=== PATIENT | male | born 1965 | race Caucasian/White ===

== ENCOUNTER 2016-12-18 14:27 | Outpatient (CLI) | END 2016-12-18 14:28 | disposition home or self-care (01) | LOC: CAR 14:27 | PROVIDERS: ATTEND Nurse Practitioner | DX: R40.0 Somnolence (principal) | CPT/HCPCS: 95810 ==

== ENCOUNTER 2016-12-19 05:01 | Outpatient (CLI) ==
[2016-12-19 05:25] LABS: BASOPHILS # (AUTO) 0.1 K/uL (0-0.2); BASOPHILS % (AUTO) 0.7 % (0.0-3.0); EOSINOPHILS # (AUTO) 0.3 K/ul (0.0-0.7); EOSINOPHILS % (AUTO) 2.7 % (0.0-7.0); HEMATOCRIT 47.3 % (42.0-52.0); HEMOGLOBIN 16.3 g/dl (14.0-18.0); IMMATURE GRANULOCYTE % (AUTO) 0.8 % (0.0-5.0); LYMPHOCYTES # (AUTO) 2.7 K/uL (0.60-3.4); LYMPHOCYTES % (AUTO) 29.8 (10.0-50.0); MEAN CORPUSCULAR HEMOGLOBIN 27.6 pg (27.0-31.0); MEAN CORPUSCULAR HGB CONC 34.5 (31.8-35.4); MONOCYTES # (AUTO) 0.7 K/uL (0.4-2.0); MONOCYTES % (AUTO) 7.3 (0-10); NEUTROPHILS # (AUTO) 5.4 K/ul (2.0-6.9); NEUTROPHILS % (AUTO) 58.7; PLATELET COUNT 363 10^3/uL (140-440); RED BLOOD COUNT 5.91 10^6/ul (4.70-6.10)
[2016-12-19 05:32] LABS: BILIRUBIN,URINE Negative (NEGATIVE); KETONES,URINE Negative (NEGATIVE); LEUKOCYTE ESTERASE ,URINE Negative (NEGATIVE); NITRITE,URINE Negative (NEGATIVE); PH,URINE 5.5 (5-9); PROTEIN,URINE 2+ (NEGATIVE); URINE, BLOOD Trace-lysed (NEGATIVE)
[2016-12-19 05:37] LABS: ADD URINE MICROSCOPIC YES
[2016-12-19 06:24] LABS: ALBUMIN 4.2 g/dL (3.4-5.0); ALBUMIN/GLOBULIN RATIO 1.08; ANION GAP 22.3; BILIRUBIN,DIRECT 0.21 mg/dL (0.00-0.30); BILIRUBIN,TOTAL 0.67 mg/dL (0.00-1.20); BUN/CREATININE RATIO 11.42; CHOL/HDL RATIO 10.8 (4.5-6.4); CREATININE 1.05 mg/dL (0.60-1.10); PHOSPHORUS 4.4 mg/dL (2.5-4.9); POTASSIUM 3.3 mmol/L (3.5-5.1); TOTAL PROTEIN 8.1 g/dL (6.4-8.2)
[2016-12-20 06:11] LABS: TESTOSTERONE 219 ng/dL (264-916)
[2016-12-21 02:09] LABS: FREE TESTOSTERONE 9.2 pg/mL (6.8-21.5)
== END 2016-12-19 05:02 | disposition home or self-care (01) ==
LOC: LAB 05:01
PROVIDERS: ATTEND Nurse Practitioner
DX: E78.2 Mixed hyperlipidemia (principal); I10 Essential (primary) hypertension; M62.89 Other specified disorders of muscle; R40.0 Somnolence; Z00.00 Encounter for general adult medical examination without abnormal findings; Z72.820 Sleep deprivation
CPT/HCPCS: 36415; 80053; 80061; 81001; 82248; 84100; 84402; 84403; 84443; 85025

== ENCOUNTER 2017-01-07 12:50 | Outpatient (CLI) | END 2017-01-07 12:51 | disposition home or self-care (01) | LOC: CAR 12:50 | PROVIDERS: ATTEND Internal Medicine Pulmonary Disease | DX: G47.33 Obstructive sleep apnea (adult) (pediatric) (principal) | CPT/HCPCS: 95811 ==

== ENCOUNTER 2017-03-31 11:21 | Emergency (ER) ==
[2017-03-31 11:26] VITALS: TEMP 93; BMI 39.7
--- NOTE | 2017-03-31 11:58 | DI ---
EXAM: Two views of the right hip HISTORY: Right hip pain with no trauma. COMPARISON: None FINDINGS: There is no cortical irregularity or displaced fracture of the right hip. There is no lyti c or blastic lesion. The joint space is maintained. The soft tissues are normal. The adjacent osse ous structures are unremarkable. IMPRESSION: No acute abnormality or displaced fracture of the right hip.
--- NOTE | 2017-03-31 12:08 | ED.PDOC ---
General ED Provider: Dr. SANDOR GRIMM Chief Complaint: Hip Pain/Injury Stated Complaint: Right hip pain, radiates to the back and to the knee. no injury Time Seen by Physician: 11:45 Mode of Arrival: Walk-In Information Source: Patient Primary Care Provider: TRANG PERAZA Nursing and Triage Documentation Reviewed and Agree: Yes Musculoskeletal Complaint Exam - Back Pain Complaint/Exam Mechanism of Injury: Reports: No known trauma Onset/Duration: 3 days Symptoms Are: Still present Timing: Constant Initial Severity: Moderate Current Severity: Severe Location: Reports: Discrete (Lower back radiating to the right hip and thigh) Character: Reports: Aching, Throbbing, Spasmodic Aggravating: Reports: Movements, Bending, Walking Alleviating: Reports: None Associated Signs and Symptoms: Reports: Numbness. Denies: Swelling, Redness, Bruising, Fever, Weakness, Tingling, Abdominal pain, Flank pain, Bladder incontinence, Bowel incontinence, Weight loss, Pain with weight bearing Related History: Reports: Similar episode (on the left side) TAD Risk Factors: Reports: None AAA Risk Factors: Reports: None Cauda Equina Risk Factors: Reports: None Epidural Abcess Risk Factors: Reports: None Related Surgical History: Reports: None Focal Tenderness: Yes (right lower back ) Paraspinal Muscle Tenderness: Yes (right ) Paraspinal Muscle Spasm: Yes (right side ) Scoliosis: No Lordosis: No Kyphosis: No SLR Test: Right Positive, Left Negative Hip Motion Testing Pain: Right Negative, Left Negative Focal Weakness: Present: None Focal Sensory Loss: Present: None Gait: Present: Normal Back Picture: 1 - back pain and spams Differential Diagnoses: Strain, Sprain Review of Systems - Review Of Systems Constitutional: Reports: No symptoms Eyes: Reports: No symptoms Ears, Nose, Mouth, Throat: Reports: No symptoms Respiratory: Reports: No symptoms Cardiac: Reports: No symptoms GI: Reports: No symptoms : Reports: No symptoms Musculoskeletal: Reports: Back pain, Joint pain, Muscle pain Skin: Reports: No symptoms Neurological: Reports: No symptoms Endocrine: Reports: No symptoms Hematologic/Lymphatic: Reports: No symptoms All Other Systems: Reviewed and Negative Past Medical History - Past Medical History Endocrine: Reports: DM 2, Dyslipidemia Cardiovascular: Reports: Hypertension Respiratory: Reports: None Hematological: Reports: None Gastrointestinal: Reports: None Genitourinary: Reports: None Neuro/Psych: Reports: Depression Musculoskeletal: Reports: None Cancer: Reports: None - Surgical History General Surgical History: Reports: Cholecystectomy, Tonsillectomy, Orthopedic ( amputated left fingertip), Hernia Repair - Family History Family History: Reports: None - Social History Smoking Status: Current some day smoker Hx Substance Use: No Alcohol Screening: None Physical Exam - Physical Exam Appearance: Ill-appearing, Obese Ill-appearing: Mild Pain Distress: Severe Neck: Supple Respiratory: Airway patent, Breath sounds clear, Breath sounds equal, Respirations nonlabored Cardiovascular: RRR, Pulses normal, No rub, No murmur GI/: Soft, Nontender, No masses, Bowel sounds normal, No Organomegaly Musculoskeletal: ROM intact Skin: Warm, Dry Neurological: Sensation intact, Alert, Oriented Psychiatric: Anxious Re-Evaluation - Re-Evaluation Time of Re-Evaluation: 12:50 Status: Improved Vital Signs Stable: Yes Critical Care Note - Critical Care Note Total Time (mins): 0 Course - Course Orders, Labs, Meds: Orders Category Date Time Status Dexamethasone 4 mg/ml Inj [Decadron 4 mg/ml Sdv] MEDS 03/31/17 12:17 Discontinued 8 mg IM ONCE STA Ketorolac Tromethamine [Toradol] MEDS 03/31/17 12:17 Discontinued 60 mg IM ONCE STA HIP, RIGHT 2 VIEWS Stat RADS 03/31/17 11:28 Completed LUMBAR SPINE, 2 OR 3 VIEWS Stat RADS 03/31/17 11:48 Taken Medications Discontinued Medications Generic Name Dose Route Start Last Admin Trade Name Freq PRN Reason Stop Dose Admin Dexamethasone Sodium Phosphate 8 mg 03/31/17 12:17 03/31/17 12:32 Decadron 4 Mg/Ml Sdv IM 03/31/17 12:18 8 mg ONCE STA Administration Ketorolac Tromethamine 60 mg 03/31/17 12:17 03/31/17 12:32 Toradol IM 03/31/17 12:18 60 mg ONCE STA Administration Vital Signs: Temp Pulse Resp BP Pulse Ox 03/31/17 12:51 158/99 H 03/31/17 11:21 93 F L 81 20 185/113 H 95 Departure - Departure Time of Disposition: 12:55 Disposition: HOME SELF-CARE Discharge Problem: Piriformis syndrome of right side Instructions: Piriformis Syndrome (ED) Condition: Fair Pt referred to PMD for follow-up: Yes Additional Instructions: Take Medications as prescribed Follow up with PCP in 5-10 days Prescriptions: Hydrocodone/Acetaminophen [[place] 5-325 Tablet] 1 tab PO Q6HR PRN #20 tablet PRN Reason: PAIN Cyclobenzaprine HCl [Flexeril] 5 mg PO TID PRN #21 tablet PRN Reason: Spasms Allergies/Adverse Reactions: Allergies Iodinated Contrast- Oral and IV Dye Adverse Reaction (Verified 03/31/17 11:26) Home Medications: Ambulatory Orders Amlodipine Besylate 10 mg PO DAILY 03/31/17 Atorvastatin Calcium [Lipitor] 40 mg PO DAILY 03/31/17 Citalopram Hydrobromide [Citalopram HBr] 20 mg PO DAILY 03/31/17 Cyclobenzaprine HCl [Flexeril] 5 mg PO TID PRN #21 tablet 03/31/17 Diltiazem HCl [Cardizem Cd] 300 mg PO DAILY 03/31/17 Hydrocodone/Acetaminophen [[place] 5-325 Tablet] 1 tab PO Q6HR PRN #20 tablet 02/05 Metformin HCl [Glucophage] 500 mg PO BIDWM 03/31/17 [place]-3 Fatty Acids/Fish Oil [Fish Oil 1,000 mg Capsule] 1 each PO DAILY Disposition Discussed With: Patient
[2017-03-31] MEDS ORDERED: TORADOL IM STA (12:17)
[2017-03-31] MEDS ORDERED: DECADRON 4 MG/ML SDV IM STA (12:17)
[2017-03-31 12:52] VITALS: BP 158/99
--- NOTE | 2017-03-31 13:12 | DI ---
EXAM: Three views of the lumbar spine HISTORY: Lower back pain. COMPARISON: None FINDINGS: The vertebral bodies demonstrate no acute compression fracture or subluxation. Lumbosacral junction is intact. There is scattered mild facet arthropathy. There is no lytic or blastic lesion . Soft tissues are normal. IMPRESSION: Mild scattered degenerative disease with no acute compression fracture or subluxation.
== END 2017-03-31 12:54 | disposition home or self-care (01) ==
LOC: ED 11:21
DX: G57.01 Lesion of sciatic nerve, right lower limb (principal); F17.210 Nicotine dependence, cigarettes, uncomplicated
CPT/HCPCS: 96372; 99282

== ENCOUNTER 2017-04-16 10:19 | Emergency (ER) ==
[2017-04-16 10:35] VITALS: BP 167/107; TEMP 97.5; BMI 39.0
--- NOTE | 2017-04-16 11:04 | ED.PDOC ---
General ED Provider: Dr. SHARON MOSLEY Chief Complaint: Extremity Pain/Injury Stated Complaint: low back pain Time Seen by Physician: 10:30 Mode of Arrival: Walk-In Information Source: Patient Exam Limitations: No limitations Primary Care Provider: TRANG PERAZA Nursing and Triage Documentation Reviewed and Agree: Yes Reviewed sepsis parameters & appropriate labs ordered?: Yes System Inflammatory Response Syndrome: Not Applicable Sepsis Protocol: For patient's 13 years and over: Temp is 96.8 and below OR 101 and greater Pulse >90 BPM Resp >20/minute Acutely Altered Mental Status Are patient's symptoms suggestive of a new infection, such as: -Pneumonia -Skin, Soft Tissue -Endocarditis -UTI -Bone, Joint Infection -Implantable Device -Acute Abdominal Infection -Wound Infection -Meningitis -Blood Stream Catheter Infection -Unknown Musculoskeletal Complaint Exam - Back Pain Complaint/Exam Mechanism of Injury: Reports: No known trauma Onset/Duration: chronic issue no new injury Symptoms Are: Still present Timing: Constant Episodes Lasting: Hours Initial Severity: Moderate Current Severity: Moderate Location: Reports: Radiating (right leg) Character: Reports: Dull, Aching, Throbbing, Spasmodic Aggravating: Reports: Movements, Lifting, Bending, Walking Alleviating: Reports: Rest, Position Associated Signs and Symptoms: Denies: Swelling, Redness, Bruising, Fever, Weakness, Numbness, Tingling, Abdominal pain, Flank pain, Bladder incontinence, Bowel incontinence, Weight loss, Pain with weight bearing Related History: Reports: Similar episode TAD Risk Factors: Reports: Hypertension AAA Risk Factors: Reports: Hypertension Cauda Equina Risk Factors: Reports: None Epidural Abcess Risk Factors: Reports: None Related Surgical History: Reports: None Focal Tenderness: No Paraspinal Muscle Tenderness: No Paraspinal Muscle Spasm: No Scoliosis: No Lordosis: No Kyphosis: No SLR Test: Right Negative, Left Negative Hip Motion Testing Pain: Right Negative, Left Negative Focal Weakness: Present: None Focal Sensory Loss: Present: None Gait: Present: Normal Differential Diagnoses: Arthritis, Renal Colic, Strain, Sprain, Other (sciatica ) Review of Systems - Review Of Systems Constitutional: Reports: No symptoms Eyes: Reports: No symptoms Ears, Nose, Mouth, Throat: Reports: No symptoms Respiratory: Reports: No symptoms Cardiac: Reports: No symptoms GI: Reports: No symptoms : Reports: No symptoms Musculoskeletal: Reports: Back pain Skin: Reports: No symptoms Neurological: Reports: No symptoms Endocrine: Reports: No symptoms Hematologic/Lymphatic: Reports: No symptoms All Other Systems: Reviewed and Negative Past Medical History - Past Medical History Previously Healthy: Yes Endocrine: Reports: DM 2, Dyslipidemia Cardiovascular: Reports: Hypertension Respiratory: Reports: None Hematological: Reports: None Gastrointestinal: Reports: None Genitourinary: Reports: None Neuro/Psych: Reports: Depression Musculoskeletal: Reports: None Cancer: Reports: None - Surgical History General Surgical History: Reports: Cholecystectomy, Tonsillectomy, Orthopedic ( amputated left fingertip), Hernia Repair - Family History Family History: Reports: None - Social History Smoking Status: Current some day smoker Hx Substance Use: No Alcohol Screening: None Physical Exam - Physical Exam Appearance: Well-appearing, No pain distress, Well-nourished Eyes: ODESSA, EOMI, Conjunctiva clear ENT: Ears normal, Nose normal, Oropharynx normal Respiratory: Airway patent, Breath sounds clear, Breath sounds equal, Respirations nonlabored Cardiovascular: RRR, Pulses normal, No rub, No murmur GI/: Soft, Nontender, No masses, Bowel sounds normal, No Organomegaly Musculoskeletal: Limited ROM (right leg) Skin: Warm, Dry, Normal color Neurological: Sensation intact, Motor intact, Reflexes intact, Cranial nerves intact, Alert, Oriented Psychiatric: Affect appropriate, Mood appropriate Critical Care Note - Critical Care Note Total Time (mins): 0 Course - Course Vital Signs: Temp Pulse Resp BP Pulse Ox 04/16/17 10:26 97.5 F L 96 H 18 167/107 H 96 Departure - Departure Time of Disposition: 11:04 Disposition: HOME SELF-CARE Discharge Problem: Sciatica Qualifiers: Laterality: right Qualified Code(s): M54.31 - Sciatica, right side Instructions: Sciatica (ED) Condition: Good Pt referred to PMD for follow-up: Yes Additional Instructions: Please call your Family Physician as soon as possible to schedule a follow-up appointment. Allergies/Adverse Reactions: Allergies Iodinated Contrast- Oral and IV Dye Adverse Reaction (Verified 04/16/17 10:24) Home Medications: Ambulatory Orders Amlodipine Besylate 10 mg PO DAILY 03/31/17 Atorvastatin Calcium [Lipitor] 40 mg PO DAILY 03/31/17 Citalopram Hydrobromide [Citalopram HBr] 20 mg PO DAILY 03/31/17 Diltiazem HCl [Cardizem Cd] 300 mg PO DAILY 03/31/17 Metformin HCl [Glucophage] 500 mg PO BIDWM 03/31/17 [place]-3 Fatty Acids/Fish Oil [Fish Oil 1,000 mg Capsule] 1 each PO DAILY Disposition Discussed With: Patient
[2017-04-16] MEDS ORDERED: MORPHINE 2 MG/ML SYRINGE IM STA (11:07)
== END 2017-04-16 11:40 | disposition home or self-care (01) ==
LOC: ED 10:19
DX: M54.31 Sciatica, right side (principal); I10 Essential (primary) hypertension; F17.210 Nicotine dependence, cigarettes, uncomplicated
CPT/HCPCS: 96372; 99283